=== PATIENT | male | born 1960 | race African-American/Black ===

== ENCOUNTER 2023-01-30 08:01 | Outpatient (RCR) | payer OTHER, SELFPAY | END 2023-05-30 23:59 | disposition home or self-care (01) | PROVIDERS: PCP Family Medicine; Visit Provider Orthopaedic Surgery Sports Medicine | DX: M17.12 Unilateral primary osteoarthritis, left knee (principal); Z96.652 Presence of left artificial knee joint; M25.562 Pain in left knee; M23.92 Unspecified internal derangement of left knee; M25.662 Stiffness of left knee, not elsewhere classified; Z74.09 Other reduced mobility; Z51.89 Encounter for other specified aftercare | CPT/HCPCS: 97110; 97116; 97161 ==

== ENCOUNTER 2023-02-06 06:01 | Day surgery (SDC) | payer OTHER, SELFPAY ==
[2023-02-06] VITALS (21 sets, daily range): BP systolic 89–138; BP diastolic 65–91; PULSE 44–55; RESP 16; TEMP 36.1–36.7; O2SAT 95–100; BMI 26.2
[2023-02-06] MEDS: LACTATED RINGERS 1000 ML 1,000 ML 100 ML IV ×2 (06:10→08:25)
[2023-02-06] MEDS: ACETAMINOPHEN 500 MG TABLET 1000 MG PO (06:54)
[2023-02-06] MEDS: OXYCODONE (CR) 10 MG TAB.ER.12H PO (06:54)
[2023-02-06] MEDS: CELECOXIB 200 MG CAPSULE PO (06:54)
[2023-02-06] MEDS: fentaNYL 100 MCG/2 ML inj IVP (07:13)
[2023-02-06] MEDS: MIDAZOLAM HCL 1 MG/ML inj IVP (07:13)
--- NOTE | 2023-02-06 07:14 | SUR.PREOP ---
TIME?OUT:?711 PT/RN/MDA?VERIFICATION?OF?SURGICAL?SITE,?PROCEDURE,?AND?CONSENT OBTAINED?PRIOR?TO?INVASIVE?PROCEDURE.
[2023-02-06] MEDS: SODIUM CHLORIDE 0.9 % (FLUSH) 10 ML SYRINGE IVF (07:19)
[2023-02-06] MEDS: CEFAZOLIN 2 GM in 0.9 % SODIUM CHLORIDE Mini-bag 100 ML IVPB (07:48)
[2023-02-06] MEDS: TRANEXAMIC ACID 100 MG/ML INJ 1000 MG IV (07:48)
--- NOTE | 2023-02-06 07:48 | W.PM.NB ---
Nerve Block Nerve Block Time Seen by Provider: 07:18 Date Seen: 02/06/23 Type of block requested by surgeon for post-operative analgesia: adductor canal Side: left Time out performed: Yes Verification of patient name: Yes Verification of date of : Yes Site marking: site marked Name of person performing procedure: Jack Continuous monitoring Was continuous monitoring of O2 sat, B/P, cardiac rehabilitation program director, recorded every 15 minutes?: Yes Procedure Checklist: sterile prep, needles and gloves Ultrasound guided. Images saved: Yes Medications given in 5ml increments after negative aspiration: Ropivicaine %: 0.5 mL: 20 Needle gauge: 20 Decadron (mg): 10 Precedex (mcg): 25 Patient tolerated procedure well: Yes Additional comments: Needle noted adjacent to nerve Block Charges Block Charge (with Pro Fee): Femoral Nerve Use of Ultrasound Machine for Block: Yes- US Guidance/pain block
--- NOTE | 2023-02-06 07:48 | W.PM.NB ---
Nerve Block Nerve Block Time Seen by Provider: 07:18 Date Seen: 02/06/23 Type of block requested by surgeon for post-operative analgesia: geniculars Side: left Time out performed: Yes Verification of patient name: Yes Verification of date of : Yes Site marking: site marked Name of person performing procedure: Jack Continuous monitoring Was continuous monitoring of O2 sat, B/P, equipment monitor phototypesetting, recorded every 15 minutes?: Yes Procedure Checklist: sterile prep, needles and gloves Medications given in 5ml increments after negative aspiration: Ropivicaine %: 0.5 mL: 9 Needle gauge: 25 Patient tolerated procedure well: Yes Block Charges Block Charge (with Pro Fee): Genicular Nerve Block Use of Ultrasound Machine for Block: No
--- NOTE | 2023-02-06 07:49 | W.ANESCHARGE ---
Anesthesia Charges Start Date/Time Anesthesia Start Date: 02/06/23 Anesthesia Start Time: 07:34 Stop Date/Time Anesthesia Stop Date: 02/06/23 Anesthesia Stop Time: 10:00
--- NOTE | 2023-02-06 08:23 | W.ANESCHARGE ---
Anesthesia Charges Start Date/Time Anesthesia Start Date: 02/06/23 Anesthesia Start Time: 07:34 Stop Date/Time Anesthesia Stop Date: 02/06/23 Anesthesia Stop Time: 10:00
--- NOTE | 2023-02-06 08:30 | CRLHL7_ITS ---
For Patients: As a result of the Cures Act, medical imaging exams and procedure reports are released immediately into your electronic medical record. You may view this report before your referring provider. If you have questions, please contact your health care provider. Indication: Postop Technique: Two views left knee Findings/Impression: Hardware from a left total knee arthroplasty is in satisfactory position. Bone alignment is normal. No sign of acute fracture. Postop changes are within normal limits. Dictated by Zeke Caruso MD @ 02/06/2023 10:58:11 AM (Electronically Signed)
--- NOTE | 2023-02-06 09:07 | PM.ORPRC ---
Procedure Note Date of procedure: 02/06/23 Procedure: PREOPERATIVE DIAGNOSIS: 1. Left knee osteoarthritis, primary, severe POSTOPERATIVE DIAGNOSIS: 1. Left knee osteoarthritis, primary, severe PROCEDURE: 1. Left total knee arthroplasty SURGEON: Darnell Reagan MD. [employer] DRIVER: Norberto Sutton Pac - Of note, a skilled assistant public defender was critical for this case to aid in patient positioning, tissue retraction, limb manipulation/positioning, and closure. ANESTHESIA: Spinal anesthetic EBL: 50ml IMPLANTS: DePuy J&J uncemented femur/tibia, cemented patella TKA - Attune rotating platform Press fit PS femur size 9, size 9 tibia, 5 poly spacer, 41mm cemented patella TOURNIQUET: 90 min at 300 torr COMPLICATIONS: None evident INDICATIONS: The patient is a pleasant 63-year-old male who has experienced severe left knee pain and difficulty bearing weight. Workup included x-rays which revealed severe osteoarthrosis in the knee. Given the deformity, the dysfunction, and the pain, as well as the failure of nonoperative management, recommendation was made for surgery. FINDINGS: Full-thickness chondral loss throughout the lateral compartment extensively. Even significant chondromalacia medial and patellofemoral compartments. Large tricompartmental osteophytes. Large [place] cyst encountered. Degenerative meniscus pathology both medial and lateral compartments. Valgus position initially. DESCRIPTION OF PROCEDURE: Following a thorough discussion of risks, benefits, and alternatives consent was obtained and the left knee was marked. The patient was brought to the operating room and placed supine on the operating table. Induction of anesthesia was undertaken. 2 g IV Ancef and 1 g tranexamic acid was administered within 1 hr of incision preoperatively. Proper time-out was performed identifying proper patient, site, procedure. The operative extremity was prepped and draped in the appropriate sterile fashion using ChloraPrep after the patient was positioned supine with all bony prominences well padded. A longitudinal, anterior, midline skin incision was made starting approximately 3cm proximal to the superior pole of the patella and advanced distal to the tibial tubercle. A median parapatellar arthrotomy was created. A medial subperiosteal sleeve was created with knife, walden elevator and curved osteotome. The retropatellar fatpad was resected and the synovium in the suprapatellar pouch excised to visualize the anterior femoral cortex. Femoral preparation was performed via an intramedullary guide. Step drill allowed access into the femoral canal. The distal cutting guide was placed with 6 ? of valgus and 12 mm cut on the distal femur initially. 2 more mm did require resection totaling 14 mm distal femoral cut to come close to the notch. Femur was sized using posterior condyles, trans epicondylar axis, and Whitesides line. Based on this, 3? of external rotation was appropriate. This found have a best fit with the sizing noted above. The 4 in 1 cutting block was then placed, and the distal femur shaped accordingly. The box cut was then created and the trial implant inserted to confirm appropriate fit. We turned our attention to the proximal tibia. Extramedullary guide was utilized for cutting with the goal of being 90 degree cut from the mechanical axis of the tibia in the varus/valgus plane utilizing tibial crest as the primary alignment. Initially a 3 mm resection was performed from the medial tibial plateau. Ultimately, balancing was achieved in both flexion and extension in both varus and valgus. The knee was able to achieve full extension comfortably. The patella was initially measured and found have a thickness of 30 mm. It was resected back to approximately 20 mm. It was sized to be a best fit with as noted above. This was drilled & trial placed. All trials were placed and found to have an excellent stability and balance. At this stage, trial implants were removed, the tibia and femoral components were opened and inserted. Thereafter, the patella was thoroughly irrigated normal saline and dried. The cement was previously mixed on the back table and cement placed followed by the implant. This was clamped and allowed remained stable until the cement cured. The real poly spacer (RP design) was opened and inserted. All extra cement was removed, and a 3 min Betadine soak performed. Finally, a final irrigation round with normal saline was performed. Closure performed with 0 PDS and #0 Stratafix for the quad tendon/retinaculum. 2-0 Vicryl/Stratafix for the subcutaneous and 4-0 Monocryl for subcuticular closure. Dressings were applied and the patient was awoken from anesthesia after the tourniquet deflated and transferred the PACU in stable condition. A skilled assistant public defender was critical for this case to aid in patient positioning, tissue retraction, bone exposure, limb manipulation/positioning, patient safety, and closure. PLAN: 1. Weight bear as tolerated operative extremity. 2. 23 hr perioperative antibiotics. 3. Ice. 4. PT/OT consults for ambulation assistance/mobility education. 5. Social work consult for discharge planning. 6. DVT prophylaxis with at [facility], Vinicio Jose Guadalupee, and aspirin twice daily.
--- NOTE | 2023-02-06 13:21 | SUR.PHASEII ---
1300: pt up to bathroom, unsuccessful at voiding. Bladder scan for 207cc at 1315. MDA updated. Obtained order for 1000cc bolus.
[2023-02-06] MEDS: LACTATED RINGERS 1000 ML 1,000 ML IV (13:30)
--- NOTE | 2023-02-06 13:42 | SUR.PHASEII ---
Pt down to PT.
[2023-02-06] MEDS: CEFAZOLIN 2 GM INJ IVP (14:45)
--- NOTE | 2023-02-06 15:10 | SUR.PHASEII ---
1500: pt up to bathroom, voided without difficulty.
== END 2023-02-06 15:29 | disposition home or self-care (01) ==
PROVIDERS: PCP Family Medicine; Visit Provider Orthopaedic Surgery Sports Medicine
PROC: (CPT 27447; principal; 2023-02-06 07:30)
DX: M17.12 Unilateral primary osteoarthritis, left knee (principal); G89.18 Other acute postprocedural pain; I48.0 Paroxysmal atrial fibrillation; N18.2 Chronic kidney disease, stage 2 (mild); Z86.718 Personal history of other venous thrombosis and embolism
CPT/HCPCS: 27447; 01402; 64447; 64454; 73560; 76942; 97110; 97116; 97161; A9270; C1776; J0690; J2250; J2405; J2704; J3010; J7120